=== PATIENT | female | born 1960 | race Caucasian/White ===

== ENCOUNTER → 2016-09-06 | Outpatient (CLI) | payer BC | END | disposition home or self-care (01) | LOC: CFH 09:08 | PROVIDERS: ATTEND Family Medicine | DX: Z12.31 Encounter for screening mammogram for malignant neoplasm of breast (principal) | CPT/HCPCS: 77063; G0202 ==

== ENCOUNTER → 2017-04-07 | Outpatient (CLI) | payer BC | END | disposition home or self-care (01) | LOC: CFH 08:49 | PROVIDERS: ATTEND Family Medicine | DX: R10.811 Right upper quadrant abdominal tenderness (principal) | CPT/HCPCS: 76705 ==

== ENCOUNTER → 2017-05-05 | Outpatient (CLI) | payer BC ==
[~2017-05-05] MED LIST: SINCALIDE (KINEVAC) 5 MCG ONE
== END | disposition home or self-care (01) ==
LOC: PETCFH 08:09
PROVIDERS: ATTEND Family Medicine
DX: R10.811 Right upper quadrant abdominal tenderness (principal)
CPT/HCPCS: 78227; A9537; J2805

== ENCOUNTER → 2019-04-07 | Outpatient (CLI) | payer BC | END | disposition home or self-care (01) | LOC: CFH 10:02 | PROVIDERS: ATTEND Family Medicine | DX: Z12.31 Encounter for screening mammogram for malignant neoplasm of breast (principal); N64.89 Other specified disorders of breast | CPT/HCPCS: 77063; 77067 ==

== ENCOUNTER → 2020-03-27 | Outpatient (CLI) | payer BC ==
[~2020-03-27] MED LIST changes: +OMNIPAQUE 350 MG/ML, 100ML BOTTLE ONE; -SINCALIDE (KINEVAC) 5 MCG ONE
== END | disposition home or self-care (01) ==
LOC: CFH 08:33
PROVIDERS: ATTEND Specialist
DX: R51.9 Headache, unspecified (principal)
CPT/HCPCS: 70496; 82565; Q9967